=== PATIENT | male | born 1980 | race Caucasian/White ===

== ENCOUNTER 2020-08-09 11:49 | Day surgery (SDC) | payer OTHER ==
[2020-08-02 13:48] VITALS: BMI 36.8
[2020-08-09] MEDS ORDERED: DEXAMETHASONE SOD PHOSPHATE 4 MG/1 ML VIAL ONE (13:54)
[2020-08-09] MEDS ORDERED: PROPOFOL 20 ML ONE (13:54)
[2020-08-09] MEDS ORDERED: MIDAZOLAM HCL 2 MG/2 ML SINGLE DOSE VIAL ONE (13:57)
[2020-08-09] MEDS ORDERED: BUPIVACAINE HCL/PF 0.5% (5 MG/ML) 30 ML VIAL IJ ONE (14:31)
[2020-08-09] MEDS ORDERED: ONDANSETRON 4 MG/2 ML VIAL ONE (14:48)
[2020-08-09] MEDS ORDERED: ceFAZolin SODIUM 1 GM VIAL ONE (14:48)
[2020-08-09] MEDS ORDERED: ONDANSETRON 4 MG/2 ML VIAL IVPUSH PRN (15:40)
[2020-08-09] MEDS ORDERED: oxyCODONE HCL 5 MG TABLET PO PRN (15:40)
[2020-08-09] MEDS ORDERED: LACTATED RINGERS SOLUTION 1,000 ML IV SCH (15:45)
[2020-08-09] MEDS ORDERED: oxyCODONE HCL 5 MG TABLET ONE (16:34)
[2020-08-09 17:31] VITALS: BP 134/82; PULSE 87; TEMP 97.9
== END 2020-08-09 17:31 | disposition home or self-care (01) ==
LOC: FASU 11:49
PROVIDERS: ATTEND Orthopaedic Surgery
PROC: 01N50ZZ Release Median Nerve, Open Approach (ICD-10-PCS; principal; 2020-08-09 14:54)
DX: G56.01 Carpal tunnel syndrome, right upper limb (principal); M67.831 Other specified disorders of synovium, right wrist
CPT/HCPCS: 94760

== ENCOUNTER 2020-10-25 13:08 | Day surgery (SDC) | payer OTHER ==
[2020-10-20 17:39] VITALS: BMI 37.2
[2020-10-25] MEDS ORDERED: MIDAZOLAM HCL 2 MG/2 ML SINGLE DOSE VIAL ONE (15:41)
[2020-10-25] MEDS ORDERED: PROPOFOL 20 ML ONE ×2 (15:41)
[2020-10-25] MEDS ORDERED: ONDANSETRON 4 MG/2 ML VIAL ONE (15:42)
[2020-10-25] MEDS ORDERED: KETOROLAC TROMETHAMINE 30 MG/1 ML VIAL ONE (15:42)
[2020-10-25] MEDS ORDERED: LIDOCAINE HCL 2% JELLY (5 ML/TUBE) ONE (15:42)
[2020-10-25] MEDS ORDERED: ceFAZolin SODIUM 1 GM VIAL ONE (15:42)
[2020-10-25] MEDS ORDERED: DEXAMETHASONE SOD PHOSPHATE 4 MG/1 ML VIAL ONE (15:42)
[2020-10-25] MEDS ORDERED: LIDOCAINE HCL 2% 100 MG/5 ML DISP.SYRIN ONE (15:53)
[2020-10-25] MEDS ORDERED: oxyCODONE HCL 5 MG TABLET PO PRN ×2 (16:54)
[2020-10-25] MEDS ORDERED: ONDANSETRON 4 MG/2 ML VIAL IVPUSH PRN (16:54)
[2020-10-25] MEDS ORDERED: PROMETHAZINE HCL 25 MG/1 ML VIAL IVPUSH PRN (16:54)
[2020-10-25 17:31] VITALS: TEMP 98.2
[2020-10-25 17:57] VITALS: BP 106/41; PULSE 88
== END 2020-10-25 18:15 | disposition home or self-care (01) ==
LOC: FASU 13:08
PROVIDERS: ATTEND Orthopaedic Surgery
PROC: 0RBN4ZZ Excision of Right Wrist Joint, Percutaneous Endoscopic Approach (ICD-10-PCS; principal; 2020-10-25 16:15)
DX: S63.591A Other specified sprain of right wrist, initial encounter (principal); M24.131 Other articular cartilage disorders, right wrist; M24.631 Ankylosis, right wrist; M67.231 Synovial hypertrophy, not elsewhere classified, right forearm; X58.XXXA Exposure to other specified factors, initial encounter; Y92.9 Unspecified place or not applicable; Y93.9 Activity, unspecified
CPT/HCPCS: 94760